=== PATIENT | male | born 1975 | race Caucasian/White ===

== ENCOUNTER 2017-02-01 08:36 | Emergency (ER) | payer OTHER ==
[2017-02-01 08:49] VITALS: RESP 16; TEMP 97.5
--- NOTE | 2017-02-01 09:28 | EDPHY ---
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 He complains of moderate pain to the dorsum of the thumb at the site of laceration moderate bleeding. The incident occurred shortly prior to arrival. Bleeding slowed with direct pressure. No other exacerbating factors and no other associated symptoms. ROS: Neuro: No numbness or tingling Musculoskeletal: No bony pain or difficulty moving the thumb since the injury occurred 5 point ROS is otherwise negative Past Medical/Surgical History: Otherwise healthy with immunizations up today Smoking Status: Former smoker Physical Exam: Physical Exam Vital signs are normal. General: No acute distress Cardiac: Brisk capillary refill is intact throughout. Skin: No rash or pallor. Extremities: Atraumatic normal except for left thumb Left thumb: Patient has a 2 cm linear laceration oriented longitudinally with dorsum of the thumb proximal phalanx with moderate bleeding. No pulsatile bleeding. No foreign bodies noted on direct examination. The extensor tendon is exposed but not lacerated. Neuro: Alert with no sensorimotor deficits in the affected thumb. Constitutional: Initial Vital Signs Temperature (C) 36.4 C 02/01/17 08:38 Heart Rate 65 02/01/17 08:38 Respiratory Rate 16 02/01/17 08:38 Blood Pressure 127/87 H 02/01/17 08:38 O2 Sat (%) 97 02/01/17 08:38 O2 Delivery Mode Room Air Allergies/Adverse Reactions: No Known Allergies Allergy (Verified 02/01/17 08:47) Home Medications: Medication Instructions Recorded NK [No Known Home Meds] 02/01/17 MDM/Departure - MDM Procedures: Digital block: After verbal consent, using a 50 50 mix of 0.5% Marcaine 2% plain lidocaine, 27 gauge needle, chlorhexidine scrub under sterile conditions- 3 injections were administered to the base of the affected finger, 8 mL with good effect. Patient tolerated this well. There were no complications. The wound is 2 cm full-thickness. The wound was copiously irrigated with saline. The wound was explored for foreign bodies and none were found. The wound was prepped and draped in the normal sterile fashion. The edges were reapproximated using 4 0 Ethilon on a P3 needle, 7 running sutures with good hemostasis and cosmesis. The patient tolerated the procedure well. There were no complications ED Course/Re-evaluation: Discussion: Thumb laceration without complications. While the tendon was exposed was not lacerated. He is neurovascularly intact. We counseled him regarding wound care after dressing was placed. - Depart Disposition: Home, Routine, Self-Care Clinical Impression: Thumb laceration Qualifiers: Encounter type: initial encounter Damage to nail status: without damage Foreign body presence: without foreign body Laterality: left Qualified Code(s): S61.012A - Laceration without foreign body of left thumb without damage to nail , initial encounter Condition: Good Instructions: Finger Laceration (ED) Additional Instructions: Diagnosis: Thumb laceration Plan: Keep the wound clean and dry for the next 2 days. Then removed the dressing, clean daily with warm soapy water Ibuprofen Tylenol for pain control Return for suture removal in 10-12 days Return sooner for redness, discharge or other concerns for infection. Referrals: NONE *PRIMARY CARE P,. [Unknown] - As per Instructions
[2017-02-01 09:47] VITALS: BP 120/80; PULSE 61; O2SAT 98
== END 2017-02-01 09:40 | disposition home or self-care (01) ==
LOC: CED 08:36
PROC: 0HQGXZZ Repair Left Hand Skin, External Approach (ICD-10-PCS; principal; 2017-02-01)
DX: S61.012A Laceration without foreign body of left thumb without damage to nail, initial encounter (principal); Z87.891 Personal history of nicotine dependence; W26.0XXA Contact with knife, initial encounter